=== PATIENT | male | born 1985 | race Hispanic/Latino ===

== ENCOUNTER 2019-01-06 14:48 | Emergency (ER) | payer SELFPAY ==
[2019-01-06] MEDS ORDERED: PROCHLORPERAZINE EDISYLATE 10 MG/2 ML VIAL ONE (15:41)
[2019-01-06] MEDS ORDERED: MAG HYDROX/AL HYDROX/SIMETH ES 30 ML SUSP UDCUP ONE (15:42)
[2019-01-06] MEDS ORDERED: LIDOCAINE HCL 2% VISCOUS 15 ML UDCUP ONE (15:42)
[2019-01-06] MEDS ORDERED: SIMETHICONE 80 MG TAB.CHEW ONE (15:42)
== END 2019-01-06 16:59 | disposition home or self-care (01) ==
LOC: EDH 14:48
DX: K29.00 Acute gastritis without bleeding (principal); R06.6 Hiccough; K21.9 Gastro-esophageal reflux disease without esophagitis; Z87.891 Personal history of nicotine dependence
CPT/HCPCS: 96372; 99283; J0780